=== PATIENT | female | born 1955 | race Hispanic/Latino ===

== ENCOUNTER 2024-08-19 13:36 | Emergency (ER) | payer OTHER, MEDICARE ==
[~2024-08-19] VITALS: Ht 152.4 cm; Wt 80.3 kg
[~2024-08-19 13:36] MED LIST: CYAN-52 PO; FENO145T26 PO; FOLI1TAB15 PO; GLIM4TAB36 PO; HYDR25TA PO; INSU100I22 SQ; LISI40TA9 PO; METF-446 PO; METO100T14 PO; METO5TAB2 PO; SERT-439 PO; SIMV-43 PO
--- NOTE | 2024-08-19 14:46 | ERN ---
ED Note History of Present Illness Stated Complaint: SHOULDER PAIN Chief Complaint: Shoulder Injury/Pain Time Seen by MD: 13:51 Dictation: 69-year-old female presents to the ED for evaluation of left shoulder pain onset 1 day ago. Patient reports she tripped and fell yesterday at home, but denies any head injury, LOC or any other associated symptoms at this time. No blood thinners. Allergies: Coded Allergies: No Known Allergies (Unverified Allergy, Unknown, 08/20/15) Home Meds Active Scripts Naproxen (Naproxen) 250 Mg Tablet, 250 MG PO BID for 5 Days, #10 TAB Prov:REYNA SNOW MD 08/19/24 Reported Medications Insulin Detemir (Levemir Flextouch) 100 Unit/1 Ml Insuln.pen, 30 UNITS SQ AM, SYRINGE 08/24/15 Sertraline HCl (Sertraline HCl) 50 Mg Tablet, 50 MG PO AM, TAB 08/24/15 Metoclopramide HCl (Metoclopramide HCl) 5 Mg Tablet, 5 MG PO TID PRN for NAUSEA/VOMITING, TAB 08/24/15 Lisinopril (Lisinopril) 40 Mg Tablet, 40 MG PO AM, TAB 08/20/15 Hydrochlorothiazide (Hydrochlorothiazide) 25 Mg Tablet, 25 MG PO AM, TAB 08/20/15 Metoprolol Tartrate (Metoprolol Tartrate) 100 Mg Tablet, 200 MG PO AM, TAB 08/20/15 Cyanocobalamin (Vitamin B-12) (Vitamin B-12) 1,000 Mcg Tablet, 1000 MCG PO AM, TAB 08/20/15 Folic Acid (Folic Acid) 1 Mg Tablet, 1 MG PO AM, TAB 08/20/15 Metformin HCl (Metformin HCl) 1,000 Mg Tablet, 1000 MG PO BID, TAB 08/20/15 Simvastatin (Simvastatin) 20 Mg Tablet, 20 MG PO PM, TAB 08/20/15 Glimepiride (Glimepiride) 4 Mg Tablet, 4 MG PO BID, TAB 08/20/15 Fenofibrate Nanocrystallized (Fenofibrate) 145 Mg Tablet, 145 MG PO PM, TAB 08/20/15 Past Medical History Past Medical History: Diabetes-Type II, High Cholesterol, Hypertension Surgical History: Appendectomy, Other Surgical History Other: TUBAL LIGATION Review of System Dictation Constitutional: Negative for fever,chills, and weight loss Eyes: Negative for injury, pain,redness, and discharge ENT: Negative for injury,pain or swelling Cardiovascular: Negative for chest pain, palpitations, and edema Respiratory: Negative for shortness of breath, cough, and wheezing, Abdomen/GI: Negative for abdominal pain, nausea, vomiting, diarrhea, and constipation Back: Negative for injury and pain : Negative for injury, bleeding and discharge MS/Extremity: Positive for left shoulder pain Negative for injury and deformity Skin: Negative for rash, and discoloration Neuro: Negative for headache, weakness, numbness, tingling, and seizure Psych: Negative for suicide ideation, homicidal ideation, and hallucinations Initial Vital Sign VS Vital Signs Date Time Temp Pulse Resp B/P (MAP) Pulse Ox O2 Delivery O2 Flow Rate FiO2 08/19/24 13:38 98.6 68 16 148/87 98 Room Air* 0 21 Physical Exam Dictation General: awake, alert, NAD Head/Face: Normocephalic, atraumatic Eyes: PERRL, EOMI, vision at baseline ENT: oral cavity clear, TMs clear, no signs of infection Neck: Trachea midline, supple, no nuchal rigidity Cardiovascular: RRR, normal S1/S2, No MRGs, no JVD Respiratory: CTAB, no respiratory distress, No rales or wheezes Abdomen: Soft, non-tender, non-distended, normal bowel sounds, no guarding or rebound. Skin: Warm, dry, normal turgor, no rash MS/Extremity: Pulses equal, no cyanosis, neurovascular intact, left shoulder tenderness Neuro: COAx4, GCS 15, strength 5/5, CN 2-12 intact, normal cerebellar exam, normal gait, Psych: Normal behavior, mood, and affect normal Results (Laboratory/Radiology) X-RAY Comment: REASON: fall ORDERING PHYSICIAN: REYNA SNOW MD PROCEDURE: SHOL 2V LT - SHOULDER COMP 2+VWS LT SHOULDER COMP 2+VWS LT HISTORY: Status post fall COMPARISON: None TECHNIQUE: 2 images of left shoulder were obtained. FINDINGS: Comminuted fracture with displacement are seen involving the left proximal humerus. Degenerative changes are seen. IMPRESSION: 1. Findings as described above. DICTATED BY: ROBERT LONG MD DATE: 08/19/24 1459 ED Course ED Course Orders Procedure Category Date Status Time Shoulder Comp 2+Vws Lt RAD 08/19/24 Resulted 14:01 Morphine 4mg Syg PHA 08/19/24 Complete (Morphine 4mg Syg) 15:30 Ondansetron 4mg Inj PHA 08/19/24 Complete (Zofran 4mg Inj) 15:30 Ketorolac PHA 08/19/24 Complete Tromethamine 15mg/Ml 15:30 Sling MAGDALENA 08/19/24 Complete 15:58 Current Medications Medications (Trade) Dose Ordered Sig/Eugenio Route PRN Reason Start Time Stop Time Status Last Admin Dose Admin Ketorolac Tromethamine (toRADol) 15 mg ONCE ONCE IV 08/19/24 15:30 08/19/24 15:31 DC 08/19/24 15:43 Morphine Sulfate (morPHINE 4MG SYG) 4 mg ONCE ONCE IVP 08/19/24 15:30 08/19/24 15:31 DC 08/19/24 15:43 Ondansetron HCl (zoFRAN 4MG INJ) 4 mg ONCE ONCE IVP 08/19/24 15:30 08/19/24 15:31 DC 08/19/24 15:43 Vital Signs Date Time Temp Pulse Resp B/P (MAP) Pulse Ox O2 Delivery O2 Flow Rate FiO2 08/19/24 15:55 98.6 80 18 130/86 99 Room Air* 0 21 08/19/24 13:38 98.6 68 16 148/87 99 Room Air 0 08/19/24 13:38 98.6 68 16 148/87 98 Room Air* 0 21 Medical Decision Making MDM MDM: Differential diagnosis: Left shoulder pain, fall, fracture Risk of complication and/or morbidity or mortality of patient management: None Medications-Per medication reconciliation Need for hospitalization: Patient does not meet criteria for hospitalization. Need for emergency major/minor surgery: No There are no social concerns with this patient. Prescription drug management Prescriptions will include symptomatic care I independently interpreted the test that were performed, results were reviewed by me and considered findings on radiology if ordered. DX & DISP Disposition: Discharge Departure Impression: Primary Impression: Fracture of neck of left humerus Condition: Stable Scripts Naproxen (Naproxen) 250 Mg Tablet 250 MG PO BID for 5 Days, #10 TAB Prov: REYNA SNOW MD 08/19/24 Referrals: VERO CROWE (PCP) EVELYNE MCNAMARA MD I have reviewed, & agreed with my scribe's, documentation. (I, Eladio rooney, am scribing for Dr. Snow) I personally scribed for REYNA SNOW MD ([email or web address]) on 08/19/24 at 16:50. Electronically submitted by Eladio Gomez ([email or web address]). REYNA SNOW MD Aug 19, 2024 14:46
--- NOTE | 2024-08-19 15:08 | HMCIMG ---
SHOULDER COMP 2+VWS LT HISTORY: Status post fall COMPARISON: None TECHNIQUE: 2 images of left shoulder were obtained. FINDINGS: Comminuted fracture with displacement are seen involving the left proximal humerus. Degenerative changes are seen. IMPRESSION: 1. Findings as described above.
[2024-08-19] MEDS: ondanSETRON 4MG INJ IVP ONE (15:43)
[2024-08-19] MEDS: ketOROlac 15MG/ML VIAL (15MG/ML) IV ONE (15:43)
[2024-08-19] MEDS: morPHINE 4 MG SYG IVP ONE (15:43)
[2024-08-19 15:55] VITALS: BP 130/86; PULSE 80; RESP 18; TEMP 98.6; O2SAT 99
--- NOTE | 2024-08-19 15:58 | NUR ---
LARGE SLING APPLIED TO LT ARM, PT TOLERATED WELL.
[2024-08-19] MEDS ORDERED: NAPR-1196 PO (16:25)
== END 2024-08-19 16:58 | disposition home or self-care (01) ==
LOC: EDH 13:36
DX: S42.292A Other displaced fracture of upper end of left humerus, initial encounter for closed fracture (principal); E11.9 Type 2 diabetes mellitus without complications; E78.00 Pure hypercholesterolemia, unspecified; I10 Essential (primary) hypertension; Z79.84 Long term (current) use of oral hypoglycemic drugs; Z90.49 Acquired absence of other specified parts of digestive tract; Z98.51 Tubal ligation status; W18.40XA Slipping, tripping and stumbling without falling, unspecified, initial encounter; Y93.89 Activity, other specified; Y92.89 Other specified places as the place of occurrence of the external cause; Y99.8 Other external cause status
CPT/HCPCS: 99284; 96374; 96375; 73030; J1885; J2405; J2270